=== PATIENT | female | born 1995 | race Caucasian/White ===

== ENCOUNTER 2016-09-23 11:50 | Emergency (ER) | payer OTHER ==
[~2016-09-23] VITALS: Ht 149.9 cm; Wt 56.7 kg
--- NOTE | 2016-09-23 15:05 | REP ---
FIRST TRIMESTER ULTRASOUND: Real-time sonographic evaluation of the gravid uterus is performed utilizing transabdominal and endovaginal technique. Gestational sac is seen in the endometrial canal containing a yolk sac. Mean sac diameter is 7 mm corresponding to an estimated gestational age of 5 weeks 3 days. No pole I seen. Right ovary measures 4.5 x 2.7 x 2.7 cm and left ovary 2.5 x 2.0 x 1.4 cm. Complex cystic structure in the right ovary probably represents a corpus luteum measuring 2.3 x 1.7 x 1.9 cm. There is no evidence of ovarian torsion, with blood flow seen in each ovary with duplex Doppler evaluation. The resistive index in each ovary is 0.47. There is no other evidence of adnexal mass or free fluid. IMPRESSION: Findings compatible with intrauterine gestation age 5 weeks 3 days , with a gestational sac in the endometrial canal containing a yolk sac. No pole is seen. Recommend followup ultrasound in 10 to 14 days to document viability. Complex cystic structure right ovary probably represents a corpus luteum 2.3 cm in maximum diameter. No ovarian torsion. Signed by Rufus Anne MD 09/23/2016 04:42 P
[2016-09-23 16:48] VITALS: BP 123/81
== END 2016-09-23 16:48 | disposition home or self-care (01) ==
LOC: M ED 14:05
DX: Z32.01 Encounter for pregnancy test, result positive (principal)

== ENCOUNTER → 2016-09-23 | Outpatient (CLI) | payer OTHER ==
[~2016-09-23] MED LIST: PRENTAB16 PO
== END ==
LOC: M LAB 10:26
PROVIDERS: ATTEND Nurse Practitioner Family
DX: Z32.01 Encounter for pregnancy test, result positive (principal)

== ENCOUNTER 2016-09-28 21:40 | Emergency (ER) | payer OTHER ==
[~2016-09-28] VITALS: Ht 149.9 cm; Wt 55.8 kg
[2016-09-28] MEDS ORDERED: PRENTAB16 PO (21:57)
--- NOTE | 2016-09-29 03:10 | REPUSA ---
CLINICAL HISTORY: Vaginal bleeding. TECHNIQUE: Endovaginal ultrasound of the pelvis was performed. FINDINGS: Comparison is made to the prior exam performed on 09/23/2016. The uterus is normal in size measuring 8.1x4.3x5.9 cm. Single, intrauterine gestational sac. Mean sac diameter is 9.5 mm. This corresponds to an estimated g estational age of 5 weeks and 5 days. The right ovary measures 3.7x2.2x2 cm. 1.3 cm right ovarian corpus is seen. The left ovary measures 2.8x2.3x2.2 cm. Trace amount of free fluid is noted in the cul-de-sac. No pole is identified within the gestational sac. IMPRESSION: Intrauterine gestational sac moving freely in the endometrial cavity. No associated pole is seen. Right ovarian corpus luteum cyst. Trace amount of free fluid is noted in the cul-de-sac.
[2016-09-29 03:47] VITALS: BP 104/62
== END 2016-09-29 03:49 | disposition home or self-care (01) ==
LOC: M ED 22:45
DX: O20.0 Threatened abortion (principal); Z3A.01 Less than 8 weeks gestation of pregnancy

== ENCOUNTER → 2019-02-01 | Outpatient (CLI) | payer OTHER ==
[~2019-02-01] MED LIST changes: +YASM3TAB2 PO
--- NOTE | 2019-02-02 10:08 | REP ---
Digital diagnostic unilateral left breast mammography with 3-D tomography and focused left breast sonography. History: Left breast lump 2 o'clock position. Noted 3-4 months ago. No comparison imaging. Mammographic findings: A skin marker is affixed to the skin at the site of the palpable lump which projects rather posteriorly in the upper outer quadrant. Heterogeneous dense fibroglandular breast parenchyma is seen. This limits the sensitivity of mammography. No mass, spiculation or architectural distortion is seen. No worrisome skin change is seen. No microcalcifications are observed. Sonographic findings: Focused left breast sonography is performed in the upper outer quadrant. At the palpable area at 2 o'clock there is a 1.0 x 0.7 x 0.8 cm hypoechoic ovoid mass lesion with a well defined back wall but solid echotexture. Its margins are fairly smooth. It is 4.9 cm from the nipple and is felt to correspond with the palpable mass. Heterogeneously dense fibroglandular background echotexture is seen. Impression: BIRADS 4: BI-RADS/ACR category 4 mammogram. Suspicious Abnormality - biopsy should be considered. Hypoechoic solid nodule at the site of the palpable lump seen by ultrasound. This is most compatible with fibroadenoma but nonspecific. Ultrasound-guided needle biopsy is recommended. BI-RADS category 4 suspicious left breast imaging. This mammogram was interpreted with the aid of an FDA-approved computer-aided detection system. The patient states she had a clinical breast exam in January 2019. The patient letter being requested is m4. Electronically Signed by Angel Luis Knox MD 02/02/2019 08:53 P
== END ==
LOC: M RAD 14:18
DX: N63.24 Unspecified lump in the left breast, lower inner quadrant (principal)

== ENCOUNTER → 2019-02-10 | Outpatient (CLI) | payer OTHER ==
[~2019-02-10] MED LIST changes: +LIDOCAINE 1% MDV 20ML VIAL As Ordered ONE
[2019-02-10 11:27] VITALS: BP 138/84
--- NOTE | 2019-02-10 13:10 | REP ---
Digital diagnostic unilateral left breast mammography with CAD: History: Marker clip placement. The patient is status post ultrasound-guided needle biopsy of a palpable nodule in the axillary region of the left breast. Comparison mammography February 01, 2019. Mammographic findings: Craniocaudad, mediolateral, and MLO views are obtained. These do not display the marker clip. It is believed to be too far posterior for routine mammographic visualization. It appeared to deploy in good position relative to the biopsied nodule on real time sonography. Impression: Marker clip not visualized on post biopsy images. Likely too far posterior to project mammographically. Electronically Signed by Angel Luis Knox MD 02/10/2019 04:49 P
--- NOTE | 2019-02-10 16:18 | REP ---
Ultrasound-guided left breast biopsy. The procedure was performed by JACQUELINE Navarro, under the direct supervision of Dr. Knox. The patient has a history of a palpable area at 2 o'clock which corresponded to a hypoechoic ovoid mass measuring 1.0 x 0.7 x 0.8 cm on an ultrasound dated 02/01/2019. The risks and benefits of the procedure were explained to the patient and informed consent was obtained both verbally and written. Directly prior to the start of the procedure, a formal timeout was completed in the procedure room. The left breast mass was localized using ultrasound guidance. The skin was prepped and draped in a sterile fashion. 17 ml of 1% lidocaine was used as a local anesthetic. Using ultrasound guidance a 13-gauge suction assisted Mammotome needle was inserted and 6 core biopsy samples were obtained. A marker clip was placed at the biopsy site. The patient tolerated the procedure well and there were no immediate complications. After the appropriate monitored convalescence the patient was discharged from the department. Reviewed by JACQUELINE Jiménez 02/10/2019 02:05 P Electronically Signed by Angel Luis Knox MD 02/10/2019 04:10 P
== END ==
LOC: M IRPRO 09:53
DX: N60.22 Fibroadenosis of left breast (principal)